=== PATIENT | female | born 1985 | race Caucasian/White ===

== ENCOUNTER 2018-12-18 14:33 | Outpatient (REF) | payer MEDICAID, SELFPAY | END 2018-12-18 14:53 | LOC: LBN 14:33 | PROVIDERS: PCP Nurse Practitioner Adult Health; Visit Provider Nurse Practitioner Family | DX: R35.0 Frequency of micturition (principal) | CPT/HCPCS: 87086 ==

== ENCOUNTER 2020-08-11 14:16 | Outpatient (REF) | payer OTHER, MEDICAID, SELFPAY ==
--- NOTE | 2020-08-11 13:30 | PAPFT_PTH ---
PATIENT: KELSEY BRIGHT LOC: [facility] U#:[id number] AGE/SX: 35/F ROOM: RE08/11/[address]: KARIS Lutz : 1985 BED: DIS: 08/11/2020 SPEC #: [id number] RECD: 08/11/20 17:34 STATUS: DHEERAJ REPritesh #: [id number] DEL: 08/11/20 13:[address]: Sindy Abbott DEPT: [facility] Cytology RECD BY: Lindsay Beckwith ENTERED: 08/11/20 17:36 SP TYPE: PAPFT OTHR DR: Mari Corona Tissues: 1 - CX/ENDOCX FOR PAP SMEARS Procedures: PAP THIN PREP/[facility] Screening HPV DNA PROBE Comments: [id number]
== END 2020-08-11 14:17 | disposition home or self-care (01) ==
LOC: LBN 14:16
PROVIDERS: PCP Nurse Practitioner Adult Health; Visit Provider Nurse Practitioner Family
DX: Z12.4 Encounter for screening for malignant neoplasm of cervix (principal); Z11.51 Encounter for screening for human papillomavirus (HPV)
CPT/HCPCS: 88142; 87624